=== PATIENT | male | born 2000 | race Two or more races ===

== ENCOUNTER 2021-12-24 19:43 | Emergency (ER) | payer OTHER ==
[~2021-12-24] VITALS: Ht 165.1 cm; Wt 54.0 kg
[2021-12-24 20:24] VITALS: BP 126/69
[2021-12-24] MEDS ORDERED: LIDOCAINE MPF 1% 10 MG/ML VIAL INJ ONE (22:05)
--- NOTE | 2021-12-24 22:32 | NUR ---
PT TAKEN TO BED 9
--- NOTE | 2021-12-24 23:01 | NUR ---
21 yo/m presents to ED w c/o lac to L thumb w pain 5/10 stinging x4 hours s/p cutting self w knife when cooking. Pt presents w 0.5inch lac to top of L thumb, bleeding controlled, +ROM, cap refil <2 sec. Denies any fevers, chills, n/v/d. Pmh: denies Allergies:denies tetanus: 5-10 yrs
[2021-12-24 23:08] VITALS: BP 131/87
--- NOTE | 2021-12-25 00:05 | NUR ---
ermd at bedside for pt care.
--- NOTE | 2021-12-25 00:30 | NUR ---
Patient discharged with v/s stable. Written and verbal after care instructions given and explained. Patient verbalized understanding. Ambulatory with steady gait. All questions addressed prior to discharge. Advised to follow up with PMD.
== END 2021-12-25 00:30 | disposition home or self-care (01) ==
LOC: MED 19:43
DX: S61.012A Laceration without foreign body of left thumb without damage to nail, initial encounter (principal); W26.0XXA Contact with knife, initial encounter; Y93.G3 Activity, cooking and baking; Y92.89 Other specified places as the place of occurrence of the external cause; Y99.8 Other external cause status
CPT/HCPCS: 12002; 90471; 90715; 99283; J2001

== ENCOUNTER 2022-01-09 14:49 | Emergency (ER) | payer OTHER ==
[~2022-01-09] VITALS: Ht 165.1 cm; Wt 53.5 kg
[2022-01-09 14:57] VITALS: BP 118/63
[2022-01-09 16:07] VITALS: BP 118/63
== END 2022-01-09 16:07 | disposition home or self-care (01) ==
LOC: MED 14:49
DX: S61.012D Laceration without foreign body of left thumb without damage to nail, subsequent encounter (principal); X58.XXXD Exposure to other specified factors, subsequent encounter
CPT/HCPCS: 99281